=== PATIENT | male | born 1990 | race African-American/Black ===

== ENCOUNTER 2024-05-07 09:12 | Emergency (ER) | payer SELFPAY ==
[2024-05-07 09:16] VITALS: BP 133/85; PULSE 72; RESP 14; TEMP 35.9; O2SAT 97
--- NOTE | 2024-05-07 09:30 | RT.EKG_ITS ---
APPROVED REPORT Exam: Resting ECG Reason for Exam: Sweaty, malaise, hx arrythmia Patient Location: E HR:58 bpm ECG Measurements Heart Rate 58 AXIS MA 184 P 33 QRSd 102 QRS -11 QT 395 T 6 QTc 387 Conclusion Sinus bradycardia, rate 58 ST elevation Va, concave ST segments I, V2, question benign early repol. T-wave inversion III. No priors available for comparison
--- NOTE | 2024-05-07 09:34 | W.ED.GENAD ---
Discharge Plan Disposition Patient Disposition: Home Condition: Stable Discharge Details Clinical Impression: Brain fog, Body aches, Abrasion of scalp Primary Care Provider: Layne,Local ED Provider: Bibi Candelaria Home Meds and New Rx's Prescriptions: New ondansetron 4 mg tablet,disintegrating 4 mg PO Q8H PRNQty: 7 0RF Discharge Instructions Instructions: Abrasions ED Additional Instructions: You were seen in the emergency department today for brain fog, body aches, and an abrasion to your head with some nausea. In our department a full physical examination performed, had a head CT that was reassuring, and had laboratory studies that did not show any abnormalities that might account for your symptoms. It is safe for you to go home and we have provided you with a referral to establish with a primary care provider. Please return to the emergency department if you develop chest pain, shortness of breath, change in responsiveness, or any other symptoms that cause you concern. Thank you for allowing us to be part of your care. HPI General Mode of arrival: ambulatory. Date/Time Provider Initiated Documentation: 05/07/24 09:13. Limitations to Documentation: no limitations. Information obtained by: patient, family and old records reviewed. HPI Narrative: HPI: This is a 33-year-old male patient without significant past medical history, reports a history of a cardiac event in teenage years but no known specific cardiac history, presenting for evaluation of general malaise and to head injury. 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 He reports that he does not recall any specific injuries or head strikes, did not fall, came home and woke up this morning around 4 AM with sweating, nausea, general malaise, and noted a new abrasion to his right forehead. The patient reports that he has had family members who have been sick with respiratory illnesses over the last week or 2, he himself reports right maxillary sinus tenderness but has not had any runny or stuffy nose, cough, shortness of breath. He states that he is not experiencing any chest pain, is not currently nauseated, no abdominal pain, no changes to bowel or bladder habits. He has not noted any tick bites, rashes, or insect bites. Does not take blood thinners, reports no motor or sensory changes. Does not know of any measured fevers but did feel very sweaty and hot last night. Exam: Gen: Awake and alert, in no apparent distress HEENT: Non-icteric sclera, pupils equal and reactive at 3 mm bilaterally, EOMs are full and without nystagmus. The patient has no facial swelling or asymmetry, no nasal discharge, posterior pharynx without erythema, exudate, or tonsillar swelling Neck: Supple, no meningismus. Lungs: No apparent respiratory distress, normal respiratory effort. Lung sounds clear and equal bilaterally with no wheezes, rhonchi, rales CV: Appears well perfused, heart with regular rate and rhythm, strong and symmetrical distal pulses Abdomen: Non-distended, soft, nontender without rigidity, rebound, guarding abrasion to the right forehead without swelling, tenderness, crepitus MSK: Moves 4 extremities without apparent limitation in ROM Skin: Visualized skin without rashes, cyanosis. Neuro: Normal Gait, cranial nerves II through XII intact and symmetrical bilaterally, 5 out of 5 strength x 4 extremities, no sensory deficits. Speaks in full, clear sentences. Psych: Appropriate for situation. MDM: This is a 33-year-old male patient presenting for evaluation of general malaise with bodyaches, subjective fevers, as well as a potential head injury without memory of the event. My differential includes but is not limited to intracranial hemorrhage, skull fracture, no spine pain or motor deficits to increase my concern for spinal cord injury or spinal fracture. Certainly considered infectious etiologies including upper respiratory infection, sinus infection, no evidence on physical examination for pharyngitis, considered pneumonia of the patient's respirations are reassuring and he is oxygenating well with no focal lung findings. He has no meningismus, fever, headache or alteration in mental status to significantly increase my concern for meningitis or encephalitis, though tickborne diseases were certainly considered. The patient has no evidence on history to suggest UTI, gastroenteritis, but I did consider metabolic and electrolyte derangements, kidney injury, liver dysfunction, arrhythmia, dehydration. We will obtain an EKG, laboratory studies to include CBC, CMP, magnesium, and a COVID swab. I will obtain a CT of the patient's head given that the patient has amnesia to the event, recommendation by [facility] head CT rules to proceed with advanced imaging. I will provide the patient with a dose of Tylenol for initial management of his body aches. ED Course: Independently interpreted the patient's EKG, which shows a sinus bradycardia with some ST segment changes with concave elevations, most concerning for benign poor early repol, no other acute ischemic changes appreciated, ectopy, or arrhythmia, and the patient's lack of chest pain and normal troponin are very reassuring against ACS. I independently interpreted the laboratory studies, which show no significant leukocytosis, anemia, or thrombocytopenia. The chemistry panel is without evidence of electrolyte abnormality, kidney dysfunction, or liver injury. I independently interpreted the patient's CT head, which shows no intracranial hemorrhage, mass effect or midline shift, or other acute changes to account for his symptoms. COVID and influenza test was negative. On reevaluation the patient reports slight improvement in his symptoms. We did discussion about the laboratory results, and I am suspicious that the patient has some sort of viral infection given his recent exposure to viral URI patients, but advised him to monitor his symptoms, use Tylenol and ibuprofen, follow-up with primary care in the event that his symptoms do not improve in the next few days. I did provide him with a referral to establish with primary care within the [facility] system. At this time, the patient has had a full medical evaluation and is safe for discharge to home. They are hemodynamically stable, ambulatory, and tolerating PO. They are understanding of the follow-up plan and return precautions. They left our facility without incident. Bibi Candelaria MD Related Data Home Medications ?Medication ?Instructions ?Recorded ?Confirmed ondansetron 4 mg disintegrating 4 mg PO Q8H PRN #7 tabs 05/07/24 tablet Previous Rx's ?Medication ?Instructions ?Recorded ondansetron 4 mg disintegrating 4 mg PO Q8H PRN #7 tabs 05/07/24 tablet Allergies Allergy/AdvReac Type Severity Reaction Status Date / Time azithromycin AdvReac Intermediate Other (See Verified 05/07/24 10:20 Comment) General Stated Complaint: Headache KAYLYNN: 3 Course Vital Signs Vital signs: Vital Signs Temperature 35.9 C L 05/07/24 09:16 Pulse 72 05/07/24 09:16 Respiratory Rate 14 05/07/24 09:16 Blood Pressure 133/85 05/07/24 09:16 Pulse Oximetry 97 05/07/24 09:16 Temperature 35.9 C L 05/07/24 09:16 Temperature Source Temporal Artery Scan 05/07/24 09:16 Pulse 72 05/07/24 09:16 Respiratory Rate 14 05/07/24 09:16 Respiratory Effort Normal 05/07/24 09:23 Blood Pressure 133/85 05/07/24 09:16 Blood Pressure Position Sitting 05/07/24 09:16 Pulse Oximetry 97 05/07/24 09:16 Oxygen Delivery Method Room Air 05/07/24 09:16 Oxygen Flow Rate 0 05/07/24 09:16 Pain Level 4 05/07/24 09:16 Medical Decision Making Quality:SDOH Health Related Social Needs: No Data to Display PFSH All Active Problems (Updated 05/07/24 @ 10:59 by Bibi Candelaria MD) Abrasion of scalp (Acute) Body aches (Acute) Brain fog (Acute) Social History Smoking/Tobacco Use Status: Current every day Tobacco Type: cigarettes Smoking risk assessment performed?: Yes Alcohol Intake: current Alcohol Intake frequency: a few times a month Alcohol type: beer Substance use type: does not use Housing: house Do you feel safe at home: Yes Do you feel safe in your relationship?: Yes PAWSS Have you Been Recently Intoxicated or Drunk Within the Last 30 days?: No Have you Ever Experienced Previous Episodes of Alcohol Withdrawal?: No Have you ever Experienced Withdrawal Seizures?: No Have you ever Experienced Delirium Tremens(DT)s?: No Have you ever undergone Alcohol Rehabilitation Treatment (i.e, inpt ot outpatient treatment programs)?: No Have you ever Experienced Blackouts?: No Have you ever Combined Alcohol with other Downers within the last 90 days?: No Have you ever Combined Alcohol with any other Substance of Abuse during the last 90 days?: No Positive Blood Alcohol level on Presentation? [PCS.BAL]: No Evidence of Increased Autonomic Activity (i.e. HR>120, tremor, sweating, agitation, nausea)?: No Result: 0
[2024-05-07 10:14] LABS: Abs Immature Grans 0.02 10^3/uL (0.0-0.06); Absolute Basophil Count 0.03 10^3/uL (0.0-0.2); Absolute Eosinophil Count 0.26 10^3/uL (0.0-0.7); Absolute Lymphocyte Count 2.02 10^3/uL (1.2-3.4); Absolute Monocyte Count 0.33 10^3/uL (0.1-0.8); Absolute Neutrophil Count 2.79 10^3/uL (1.2-6.7); Basophils % 0.6 %; Eosinophils % 4.8 %; HCT 41.4 % (40.0-50.0); HGB 14.4 g/dL (13.5-17.5); Immature Grans % 0.4 %; Lymphocytes % 37.1 %; MCH 28.4 pg (27.0-33.0); MCHC 34.8 % (32.0-36.0); MCV 82 fL (80-95); MPV 10.8 fL (8.0-11.0); Monocytes % 6.1 %; Platelet Count 265 10^3/uL (130-400); RBC 5.07 10^6/uL (4.36-5.78); RDW 13.2 % (11.8-14.1); RDW-SD 39.4 fL; WBC 5.45 10^3/uL (4.4-10.8)
[2024-05-07 10:29] LABS: COVID-19 PCR Negative (Negative); Influenza A PCR Negative (Negative); Influenza B PCR Negative (Negative); RSV PCR Negative (Negative)
[2024-05-07 10:30] LABS: Source Nasopharynx
--- NOTE | 2024-05-07 10:32 | DI.CT_ITS ---
Exam(s) CT HEAD WO EXAM: CT HEAD WO CLINICAL HISTORY: Forehead abrasion, unknown memory of event. TECHNIQUE: Imaging Protocol: Axial computed tomography images with coronal and sagittal reformatted images were created and reviewed COMPARISON: No exams were available for comparison FINDINGS: Ventricles and Extra axial spaces: Normal in size and morphology for the patient's age. Hemorrhage: None. Cerebral parenchyma: No evidence of acute infarct or mass. Midline shift: None. Brainstem/Cerebellum: Normal. Calvarium: Normal. Visualized Paranasal sinuses:Clear. Mastoids: Clear. Soft Tissues: Unremarkable. ORBITS: Unremarkable. PITUITARY: Not enlarged. IMPRESSION: No acute intracranial process. RADIATION DOSE DELIVERED: 891.94mGy.cm Total DLP DATA REPOSITORY: All CT scans at this facility are submitted to the National Radiology Data Registry (NRDR) Dose Index Registry (DIR) with the [employer] (A[employer]). RADIATION OPTIMIZATION: All CT scans at this facility use at least one of these dose optimization te chniques: automated exposure control; mA and/or kV adjustment per patient size (includes targeted exa ms where dose is matched to clinical indication); or iterative reconstruction.
[2024-05-07 10:35] LABS: ALT 30 U/L (16-63); AST 15 U/L (15-37); Albumin 3.8 g/dL (3.4-5.0); Alkaline Phosphatase 54 U/L (46-116); Anion Gap 6.8 mmol/L (3-11); BUN 15 mg/dL (7-18); Bilirubin, Total 0.56 mg/dL (0.2-1.0); CO2 25.2 mmol/L (21.0-32.0); Calcium 8.9 mg/dL (8.5-10.1); Chloride 105 mmol/L (98-107); Estimated GFR 101.28 (mL/min/1.73m2); Glucose 122 mg/dL (74-106); Magnesium 1.9 mg/dL (1.8-2.4); Potassium 4.1 mmol/L (3.5-5.1); Sodium 137 mmol/L (136-145); Total Protein 7.5 g/dL (6.4-8.2); Troponin I 5 ng/L (<or=76)
[2024-05-07] MEDS: Acetaminophen 500 MG TAB 1000 MG PO (11:27)
[2024-05-07 11:28] VITALS: BP 133/85; PULSE 70; RESP 14; TEMP 36.6; O2SAT 98
[2024-05-07 11:30] VITALS: BP 133/85; PULSE 70; RESP 14; TEMP 36.6; O2SAT 98
== END 2024-05-07 11:31 | disposition home or self-care (01) ==
PROVIDERS: Emergency Provider Emergency Medicine
DX: S00.01XA Abrasion of scalp, initial encounter (principal); R41.89 Other symptoms and signs involving cognitive functions and awareness; R11.0 Nausea; R52 Pain, unspecified; X58.XXXA Exposure to other specified factors, initial encounter
CPT/HCPCS: 36415; 80053; 87637; 93005; 99284; 70450; 83735; 84484; 85025; 93010